=== PATIENT | male | born 1960 ===

== ENCOUNTER 2021-02-13 11:16 | Day surgery (SDC) | payer BC ==
[2021-02-13] MEDS ORDERED: ceFAZolin/STERILE WATER 2 GM/20 ML SYRINGE IV NR (11:55)
[2021-02-13] MEDS ORDERED: GENTAMICIN/NS 120MG/100ML 120 MG/100 ML BAG IV NR (11:56)
[2021-02-13] MEDS ORDERED: GENTAMICIN 160 MG in SODIUM CHLORIDE 0.9% 100 ML IV SCH (13:00)
[2021-02-13] MEDS ORDERED: LACTATED RINGERS 1,000 ML IV SCH (13:00)
[2021-02-13] MEDS ORDERED: HYDROmorphone 1 MG/1 ML INJ IV PRN ×2 (13:00)
[2021-02-13] MEDS ORDERED: ONDANSETRON 4 MG/2 ML INJ IV PRN (13:00)
--- NOTE | 2021-02-13 13:01 | Anesthesia Day of Surgery ---
Anesthesia Day of Surgery - Day of Surgery Patient Examined: Yes Patient H&P Reviewed: Yes Patient is NPO: Yes
--- NOTE | 2021-02-13 13:02 | Anesthesia Consultation ---
Anesthesia Consult and Med Hx Date of service: 02/13/21 - Airway Anesthetic Teeth Evaluation: Good ROM Head & Neck: Adequate Mental/Hyoid Distance: Adequate Mallampati Class: Class I Intubation Access Assessment: Good - Pre-Operative Health Status ASA Pre-Surgery Classification: ASA2 Proposed Anesthetic Plan: General - Pulmonary Hx Smoking: No - Cardiovascular System Hx Hypertension: No - Gastrointestinal Hx Gastroesophageal Reflux Disease: No - Endocrine Hx Non-Insulin Dependent Diabetes: No - Hematic Hx Sickle Cell Disease: No - Other Systems Hx Obesity: No
[2021-02-13] MEDS ORDERED: LIDOCAINE MPF (2%) 20 MG/1 ML VIAL 5 ML ONE (13:22)
[2021-02-13] MEDS ORDERED: propofoL 200 MG/20 ML VIAL IV ONE (13:22)
[2021-02-13] MEDS ORDERED: MIDAZOLAM 2 MG/2 ML INJ ONE (13:22)
[2021-02-13] MEDS ORDERED: fentaNYL 100 MCG/2 ML INJ ONE (13:22)
[2021-02-13] MEDS ORDERED: ONDANSETRON 4 MG/2 ML INJ ONE (13:30)
[2021-02-13] MEDS ORDERED: dexAMETHasone 20 MG/5 ML VIAL ONE (13:30)
[2021-02-13] MEDS ORDERED: KETOROLAC 30 MG/1 ML INJ ONE (13:30)
--- NOTE | 2021-02-13 13:55 | Post Operative Note ---
Date of procedure: 02/13/21 Pre-op diagnosis: CAP inc psa Post-op diagnosis: same Findings: see op note Procedure: cysto flex pus Anesthesia: GETA Surgeon: BRAXTON BEY Estimated blood loss: minimal Pathology: list (prostate) Specimen disposition: to lab Condition: stable Disposition: PACU
--- NOTE | 2021-02-13 13:56 | Discharge Summary ---
Short Stay Discharge Plan Activity: other (no straining ) Weight Bearing Status: Full Weight Bearing Diet: low fat, low cholesterol, low salt Special Instructions: other (inc fluids ) Follow up with: DALILA WATSON MD [Primary Care Provider] - 7 Days
[2021-02-13] MEDS ORDERED: WATER FOR IRRIG STERILE 2000 ML IR ONE (14:30)
--- NOTE | 2021-02-13 15:36 | Post Anesthesia Evaluation ---
- Post Anesthesia Evaluation Patient Participated: Yes Airway Patent: Yes Stable Respiratory Function: Yes Nausea/Vomiting: No Temp > 96.8F: Yes Pain Manageable: Yes Adequeate Hydration: Yes Anesthesia Complications: No Block Receding Appropriately: Not Applicable Patient on Ventilator: No
[2021-02-13 15:46] VITALS: BP 123/77
--- NOTE | 2021-02-13 16:28 | Ultrasound Report ---
Ultrasound Transrectal INDICATION: Guidance for prostate biopsy. Elevated PSA. COMPARISON: None available. FINDINGS: The prostate gland measures 4.3 x 1.9 x 3.6 cm. No significant abnormality is identified. Please see the procedure report for further details. IMPRESSION: Limited transrectal sonography to guide prostate biopsy. Signer Name: Tye Sparks MD Signed: 02/13/2021 4:23 PM Workstation Name: [id number]
--- NOTE | 2021-02-14 04:34 | Operative Report ---
DATE OF SURGERY: 02/13/2021 PREOPERATIVE DIAGNOSES: Increasing PSA, previous prostate cancer, previous biopsy a year ago negative, no localized finding on MRI, high risk prostate cancer. POSTOPERATIVE DIAGNOSES: Increasing PSA, previous prostate cancer, previous biopsy a year ago negative, no localized finding on MRI, high risk prostate cancer. PROCEDURE: Cystoscopy with flexible scope and biopsies of the prostate. SURGEON: Jaziel Fagan M.D. ANESTHESIA: General. FINDINGS: This is a gentleman with a small prostate, increasing PSA up to 17, now presents for biopsies again. DESCRIPTION OF PROCEDURE: The patient was brought to the operating room and placed on the operating table. Following induction of anesthesia, placed in the lithotomy position, prepped and draped in usual sterile fashion. 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 There were no localized papillary lesions. Bladder neck was open. Ultrasound was placed and prostate measured approximately 15 grams. Biopsies were done in total 6 on the right, 6 on the left. Very small prostate. The patient tolerated the procedure well. We used a little hemostatic foam at the end of the procedure, but there was no significant bleeding. The patient tolerated the procedure well and brought to recovery in stable condition. TID: [id number] RECEIPT: [id number] LISA/[facility]
== END 2021-02-13 15:55 | disposition home or self-care (01) ==
LOC: OR 11:16
PROVIDERS: ATTEND Urology
DX: R97.20 Elevated prostate specific antigen [PSA] (principal); N30.30 Trigonitis without hematuria; Z85.46 Personal history of malignant neoplasm of prostate
CPT/HCPCS: 52000; 55700; 76872; A4217; J0690; J1100; J1580; J1885; J2250; J2405; J2704; J3010; J7120